=== PATIENT | female | born 1985 | race Caucasian/White ===

== ENCOUNTER → 2017-08-13 | Emergency (ER) | payer MEDICAID ==
[~2017-08-13] VITALS: Ht 165.1 cm; Wt 109.0 kg
[~2017-08-13] MED LIST: CEPH500C5 PO; IBUP-1984 PO; ONDA8TAB6 PO
[2017-08-13 13:11] VITALS: BP 136/80
== END | disposition home or self-care (01) ==
LOC: ER 11:28
DX: L03.116 Cellulitis of left lower limb (principal); M25.562 Pain in left knee; Z88.0 Allergy status to penicillin
CPT/HCPCS: 93971; 99284

== ENCOUNTER 2018-08-02 01:25 | Emergency (ER) | payer MEDICAID ==
[~2018-08-02] VITALS: Ht 165.1 cm; Wt 109.5 kg
[2018-08-02 02:26] VITALS: BP 135/94
[2018-08-02] MEDS ORDERED: dexamethasone sod phosphate 10mg/ml inj IM STA (02:46)
[2018-08-02] MEDS ORDERED: FAMO-128 PO (02:47)
[2018-08-02] MEDS ORDERED: AZIT250T PO (02:47)
[2018-08-02] MEDS ORDERED: PRED10TA23 PO (02:47)
== END 2018-08-02 03:01 | disposition home or self-care (01) ==
LOC: ER 01:26
DX: T78.40XA Allergy, unspecified, initial encounter (principal); Z88.0 Allergy status to penicillin; Z79.899 Other long term (current) drug therapy; X58.XXXA Exposure to other specified factors, initial encounter
CPT/HCPCS: 96372; 99283; J1100

== ENCOUNTER 2018-10-01 16:52 | Emergency (ER) | payer MEDICAID, OTHER ==
[~2018-10-01] VITALS: Ht 165.1 cm; Wt 102.7 kg
[~2018-10-01 16:52] MED LIST changes: +AZIT250T PO; -CEPH500C5 PO; +FAMO-128 PO
[2018-10-01] MEDS ORDERED: CLIN300C85 PO (19:44)
[2018-10-01 19:49] VITALS: BP 145/106
== END 2018-10-01 19:51 | disposition home or self-care (01) ==
LOC: ER 16:52
DX: K04.7 Periapical abscess without sinus (principal); Z88.0 Allergy status to penicillin
CPT/HCPCS: 99283

== ENCOUNTER 2018-10-24 21:55 | Emergency (ER) | payer MEDICAID, OTHER ==
[~2018-10-24] VITALS: Ht 165.1 cm; Wt 98.0 kg
[~2018-10-24 21:55] MED LIST changes: +CLIN-96 PO
[2018-10-24 22:13] VITALS: BP 134/93
[2018-10-24] MEDS ORDERED: ondansetron 4mg rapidly disintigrating tab PO ONE (22:40)
[2018-10-24] MEDS ORDERED: ketorolac trometh inj. 60 MG/2 ML VIAL IM ONE (22:40)
[2018-10-24 22:56] LABS: BASOPHILS # (AUTO) 0.1 X10'3 (0-0.2); BASOPHILS % (AUTO) 0.7 % (0-1); EOSINOPHILS # (AUTO) 0.1 X10'3 (0-0.9); HEMATOCRIT 39.5 % (35.0-45.0); HEMOGLOBIN 13.3 g/dl (12.0-16.0); LYMPHOCYTES # (AUTO) 1.1 X10'3 (1.1-4.8); LYMPHOCYTES % (AUTO) 13.1 % (21-51); MEAN CORPUSCULAR HEMOGLOBIN 29.8 PG (27.0-31.0); MEAN CORPUSCULAR HGB CONC 33.6 g/dL (33.0-36.5); MEAN CORPUSCULAR VOLUME 88.6 FL (78-98); MEAN PLATELET VOLUME 9.9 FL (7.4-10.4); MONOCYTES # (AUTO) 0.8 X10'3 (0-0.9); MONOCYTES % (AUTO) 8.9 % (2-12); NEUTROPHILS # (AUTO) 6.7 X10'3 (1.8-7.7); NEUTROPHILS % (AUTO) 76.3 % (42-75); PLATELET COUNT 184 X10'3 (140-440); RED BLOOD COUNT 4.46 X10'6 (4.20-5.60); RED CELL DISTRIBUTION WIDTH 13.1 % (11.5-14.5); WHITE BLOOD COUNT 8.8 X10'3 (4.5-11.0)
[2018-10-24 22:57] LABS: CLARITY,URINE CLOUDY (Clear); COLOR,URINE ORANGE (Yellow); UA COLLECTION TYPE CLN CATCH MIDSTREAM
[2018-10-24 23:03] LABS: WBC,URINE TNTC /HPF (0-4)
[2018-10-24 23:04] LABS: RBC,URINE TNTC /HPF (0-2); SQUAMOUS EPITHELIAL CELL,UR MODERATE /LPF (FEW)
[2018-10-24 23:06] LABS: BACTERIA,URINE 3+ /HPF (Neg)
[2018-10-24 23:09] LABS: ALANINE AMINOTRANSFERASE 21 U/L (12-78); ALBUMIN 4.1 G/DL (3.4-5.0); ALBUMIN/GLOBULIN RATIO 1.3 (1.1-1.5); ALKALINE PHOSPHATASE 52 IU/L (46-116); ANION GAP 11 (8-16); ASPARTATE AMINO TRANSFERASE 17 U/L (10-37); BILIRUBIN,TOTAL 0.7 MG/DL (0.1-1.0); BLOOD UREA NITROGEN 7 MG/DL (7-18); CALCIUM 9.2 MG/DL (8.5-10.1); CHLORIDE 105 MMOL/L (99-107); CREATININE 1.16 MG/DL (0.40-0.90); GLUCOSE 115 MG/DL (70-104); LIPASE 161 U/L (73-393); POTASSIUM 3.6 MMOL/L (3.5-5.1); SODIUM 141 MMOL/L (135-145); TOTAL CARBON DIOXIDE 25.5 MMOL/L (24-32); TOTAL PROTEIN 7.2 G/DL (6.4-8.2); eGFR 53 ML/MIN
[2018-10-24] MEDS ORDERED: CefTRIAXone/D5W-Rocephin 1gm 50 ML IV ONE (23:25)
[2018-10-24] MEDS ORDERED: CefTRIAXone 1000mg IM Kit (w/lidocaine diluent) IM ONE (23:35)
[2018-10-25] MEDS ORDERED: ACET1TAB12 PO (01:04)
== END 2018-10-25 01:24 | disposition home or self-care (01) ==
LOC: ER 21:56
DX: N10 Acute pyelonephritis (principal); F12.90 Cannabis use, unspecified, uncomplicated; Z88.0 Allergy status to penicillin; Z79.899 Other long term (current) drug therapy
CPT/HCPCS: 36415; 74176; 80053; 81001; 83690; 85025; 87088; 96372; 99284; J0696; J1885

== ENCOUNTER 2020-03-19 14:23 | Emergency (ER) | payer MEDICAID ==
[~2020-03-19] VITALS: Ht 165.1 cm; Wt 105.4 kg
[~2020-03-19 14:23] MED LIST changes: +ACET1TAB12 PO; -CLIN-96 PO; +CLIN-97 PO
[2020-03-19 15:36] LABS: CLARITY,URINE CLEAR (Clear); GLUCOSE, URINE NEGATIVE (Neg); KETONES,URINE TRACE mg/dl (Neg); LEUKOCYTE ESTERASE ,URINE NEGATIVE (Neg); NITRITES, URINE NEGATIVE (Neg); OCCULT BLOOD,URINE TRACE-INTACT (Neg); PH,URINE 6.5 (4.8-8.0); PROTEIN,URINE NEGATIVE (Neg); UROBILINOGEN,URINE 0.2 E.U/dL (0.2-1.0)
[2020-03-19 15:37] LABS: COLOR,URINE STRAW (Yellow); UA COLLECTION TYPE CLN CATCH MIDSTREAM
[2020-03-19 15:38] LABS: URINE HCG NEGATIVE (NEG)
[2020-03-19 15:45] LABS: BACTERIA,URINE FEW /HPF (Neg); MUCUS STRANDS NONE SEEN /LPF (Neg); RBC,URINE 0-2 /HPF (0-2); SQUAMOUS EPITHELIAL CELL,UR FEW /LPF (FEW); WBC,URINE 0-4 /HPF (0-4)
[2020-03-19] MEDS ORDERED: normal saline 1000ML IV soln IVB ONE (16:15)
[2020-03-19 16:47] LABS: BASOPHILS % (AUTO) 0.4 % (0-1); EOSINOPHILS % (AUTO) 0.3 % (0-6); HEMATOCRIT 40.3 % (35.0-45.0); HEMOGLOBIN 13.8 g/dl (12.0-16.0); LYMPHOCYTES # (AUTO) 1.7 X10'3 (1.1-4.8); LYMPHOCYTES % (AUTO) 15.3 % (21-51); MEAN CORPUSCULAR HEMOGLOBIN 29.8 PG (27.0-31.0); MEAN CORPUSCULAR HGB CONC 34.2 g/dL (33.0-36.5); MEAN CORPUSCULAR VOLUME 87.2 FL (78-98); MEAN PLATELET VOLUME 9.2 FL (7.4-10.4); MONOCYTES # (AUTO) 0.6 X10'3 (0-0.9); MONOCYTES % (AUTO) 5.5 % (2-12); NEUTROPHILS # (AUTO) 8.6 X10'3 (1.8-7.7); NEUTROPHILS % (AUTO) 78.5 % (42-75); PLATELET COUNT 235 X10'3 (140-440); RED BLOOD COUNT 4.62 X10'6 (4.20-5.60); RED CELL DISTRIBUTION WIDTH 12.6 % (11.5-14.5)
[2020-03-19 16:56] LABS: ANION GAP 9 (8-16); BLOOD UREA NITROGEN 8 MG/DL (7-18); BUN/CREATININE RATIO 8.5 (6.6-38.0); CALCIUM 8.9 MG/DL (8.5-10.1); CHLORIDE 103 MMOL/L (99-107); CREATININE 0.94 MG/DL (0.40-0.90); GLUCOSE 112 MG/DL (70-104); POTASSIUM 3.5 MMOL/L (3.5-5.1); SODIUM 138 MMOL/L (135-145); TOTAL CARBON DIOXIDE 25.7 MMOL/L (24-32); eGFR 67 ML/MIN
[2020-03-19 17:10] VITALS: BP 125/84
[2020-03-19] MEDS ORDERED: PROC-8 PO (23:44)
[2020-03-19] MEDS ORDERED: PANT-47 PO (23:44)
== END 2020-03-19 17:19 | disposition home or self-care (01) ==
LOC: ER 14:24
DX: M79.601 Pain in right arm (principal); M79.602 Pain in left arm; R11.2 Nausea with vomiting, unspecified; R82.4 Acetonuria; F41.9 Anxiety disorder, unspecified; F12.90 Cannabis use, unspecified, uncomplicated; Z88.0 Allergy status to penicillin; Z79.2 Long term (current) use of antibiotics; Z79.899 Other long term (current) drug therapy
CPT/HCPCS: 36415; 80048; 81001; 81025; 85025; 96360; 99283; J7030

== ENCOUNTER 2020-03-19 20:51 | Emergency (ER) | payer MEDICAID ==
[~2020-03-19] VITALS: Ht 165.1 cm; Wt 104.8 kg
[2020-03-19] MEDS ORDERED: diphenhydrAMINE 50 mg/ml inj IV ONE (21:55)
[2020-03-19] MEDS ORDERED: mag hydrox/Alum hydrox/simeth 30ml oral suspension PO ONE (21:55)
[2020-03-19] MEDS ORDERED: proCHLORperazine 10 MG/2 ml inj IV ONE (21:55)
[2020-03-19] MEDS ORDERED: ringers solution, lactated 1000ml IV soln IV ONE (21:55)
[2020-03-19] MEDS ORDERED: LIDOcaine Viscous 15ml cup MM PRN (21:55)
--- NOTE | 2020-03-19 23:30 | NUR ---
relieving RN for break, pt is sleeping on gurney, resp even and unlabored
[2020-03-19] MEDS ORDERED: PANT-47 PO (23:44)
[2020-03-19] MEDS ORDERED: PROC-8 PO (23:44)
[2020-03-19 23:49] VITALS: BP 115/74
== END 2020-03-19 23:51 | disposition home or self-care (01) ==
LOC: ER 20:51
DX: R11.2 Nausea with vomiting, unspecified (principal); F41.9 Anxiety disorder, unspecified; F12.90 Cannabis use, unspecified, uncomplicated; R10.84 Generalized abdominal pain; Z88.0 Allergy status to penicillin; Z79.2 Long term (current) use of antibiotics; Z79.899 Other long term (current) drug therapy
CPT/HCPCS: 96361; 96374; 96375; 99284; J0780; J1200; J7120

== ENCOUNTER 2021-06-27 18:51 | Emergency (ER) | payer MEDICAID ==
[~2021-06-27] VITALS: Ht 165.1 cm; Wt 104.5 kg
[~2021-06-27 18:51] MED LIST changes: +PANT-47 PO; +PROC-8 PO
[2021-06-27 19:05] VITALS: BP 134/90
[2021-06-28] MEDS ORDERED: ONDA4TAB6 PO (10:18)
== END 2021-06-27 20:12 | disposition home or self-care (01) ==
LOC: ER 18:52
DX: J06.9 Acute upper respiratory infection, unspecified (principal); R09.81 Nasal congestion; F41.9 Anxiety disorder, unspecified; F12.90 Cannabis use, unspecified, uncomplicated; Z88.0 Allergy status to penicillin; Z79.2 Long term (current) use of antibiotics; Z79.899 Other long term (current) drug therapy
CPT/HCPCS: 99281; 99282

== ENCOUNTER 2021-06-28 09:47 | Emergency (ER) | payer MEDICAID ==
[~2021-06-28] VITALS: Ht 165.1 cm; Wt 104.5 kg
[2021-06-28 10:10] VITALS: BP 147/82
[2021-06-28] MEDS ORDERED: ONDA4TAB6 PO (10:18)
== END 2021-06-28 10:35 | disposition home or self-care (01) ==
LOC: ER 09:47
DX: J06.9 Acute upper respiratory infection, unspecified (principal); Z20.822 Contact with and (suspected) exposure to COVID-19; R11.2 Nausea with vomiting, unspecified; R09.89 Other specified symptoms and signs involving the circulatory and respiratory systems; R05.9 Cough, unspecified; F41.9 Anxiety disorder, unspecified; F17.200 Nicotine dependence, unspecified, uncomplicated; F12.90 Cannabis use, unspecified, uncomplicated; Z88.0 Allergy status to penicillin; Z79.2 Long term (current) use of antibiotics; Z79.899 Other long term (current) drug therapy
CPT/HCPCS: 36415; 99283; U0003; U0005

== ENCOUNTER 2021-06-30 19:29 | Emergency (ER) | payer MEDICAID ==
[~2021-06-30] VITALS: Ht 165.1 cm; Wt 104.0 kg
[~2021-06-30 19:29] MED LIST changes: +ONDA4TAB6 PO
[2021-06-30] MEDS ORDERED: diphenhydrAMINE 50 mg/ml inj IM ONE (20:55)
[2021-06-30 21:10] VITALS: BP 133/75
== END 2021-06-30 21:12 | disposition home or self-care (01) ==
LOC: ER 19:29
DX: F41.9 Anxiety disorder, unspecified (principal); T50.905A Adverse effect of unspecified drugs, medicaments and biological substances, initial encounter; J02.9 Acute pharyngitis, unspecified; R09.81 Nasal congestion; H92.01 Otalgia, right ear; F12.90 Cannabis use, unspecified, uncomplicated; Z88.0 Allergy status to penicillin; Z79.2 Long term (current) use of antibiotics; Z79.899 Other long term (current) drug therapy; Y92.89 Other specified places as the place of occurrence of the external cause
CPT/HCPCS: 96372; 99283; J1200

== ENCOUNTER 2021-07-18 17:37 | Emergency (ER) | payer MEDICAID ==
[~2021-07-18] VITALS: Ht 165.1 cm; Wt 104.5 kg
[2021-07-18 17:51] VITALS: BP 161/92
[2021-07-18 20:03] LABS: BASOPHILS # (AUTO) 0.1 X10'3 (0-0.2); BASOPHILS % (AUTO) 0.7 % (0-1); EOSINOPHILS # (AUTO) 0.2 X10'3 (0-0.9); EOSINOPHILS % (AUTO) 1.9 % (0-6); HEMATOCRIT 41.8 % (35.0-45.0); HEMOGLOBIN 14.2 g/dl (12.0-16.0); LYMPHOCYTES # (AUTO) 2.3 X10'3 (1.1-4.8); LYMPHOCYTES % (AUTO) 27.8 % (21-51); MEAN CORPUSCULAR HEMOGLOBIN 29.9 PG (27.0-31.0); MEAN CORPUSCULAR VOLUME 87.9 FL (78-98); MEAN PLATELET VOLUME 9.4 FL (7.4-10.4); MONOCYTES # (AUTO) 0.6 X10'3 (0-0.9); MONOCYTES % (AUTO) 7.4 % (2-12); NEUTROPHILS # (AUTO) 5.1 X10'3 (1.8-7.7); NEUTROPHILS % (AUTO) 62.2 % (42-75); PLATELET COUNT 257 X10'3 (140-440); RED BLOOD COUNT 4.76 X10'6 (4.20-5.60); RED CELL DISTRIBUTION WIDTH 12.7 % (11.5-14.5); WHITE BLOOD COUNT 8.3 X10'3 (4.5-11.0)
[2021-07-18] MEDS ORDERED: iohexol 300mg/ml 100ml inj. ONE (20:09)
[2021-07-18 20:18] LABS: ALANINE AMINOTRANSFERASE 23 U/L (12-78); ALBUMIN 4.3 G/DL (3.4-5.0); ALBUMIN/GLOBULIN RATIO 1.2 (1.1-1.5); ALKALINE PHOSPHATASE 49 IU/L (46-116); ANION GAP 10 (8-16); ASPARTATE AMINO TRANSFERASE 25 U/L (10-37); BILIRUBIN,TOTAL 0.6 MG/DL (0.1-1.0); BLOOD UREA NITROGEN 7 MG/DL (7-18); BUN/CREATININE RATIO 7.9 (6.6-38.0); CHLORIDE 103 MMOL/L (99-107); CREATININE 0.89 MG/DL (0.40-0.90); GLUCOSE 99 MG/DL (70-104); POTASSIUM 3.9 MMOL/L (3.5-5.1); SODIUM 140 MMOL/L (135-145); TOTAL CARBON DIOXIDE 26.7 MMOL/L (24-32); eGFR 71 ML/MIN
== END 2021-07-18 22:23 | disposition home or self-care (01) ==
LOC: ER 17:38
DX: J02.9 Acute pharyngitis, unspecified (principal); R04.9 Hemorrhage from respiratory passages, unspecified; F41.9 Anxiety disorder, unspecified; K21.9 Gastro-esophageal reflux disease without esophagitis; F12.10 Cannabis abuse, uncomplicated; Z88.0 Allergy status to penicillin; Z88.1 Allergy status to other antibiotic agents; Z79.899 Other long term (current) drug therapy
CPT/HCPCS: 36415; 70491; 80053; 85025; 99285; Q9967